=== PATIENT | female | born 1995 | race African-American/Black ===

== ENCOUNTER 2017-04-30 17:29 | Emergency (ER) | payer OTHER ==
[~2017-04-30] VITALS: Ht 152.4 cm; Wt 61.4 kg
[2017-04-30 17:34] VITALS: TEMP 98
[2017-04-30] MEDS ORDERED: birth control pills PO (17:53)
[2017-04-30 18:11] LABS: BASO % 0.1 % (0.0-2.0); GRAN # 4.7 (1.4-6.5); LYMPH # 1.9 (1.2-3.4); MEAN CELL VOLUME 70 fl (80.0-100.0); MEAN CORPUSCULAR HGB CONC 32 g/dl (33.0-37.0); MEAN PLATELET VOLUME 10.9 fl (7.4-10.4); MONO # 0.5 (0.1-0.6); MONO % 7.5 % (1.7-9.3); PLATELET COUNT 207 K/mm3 (130-400); RED BLOOD COUNT 5.23 M/mm3 (4.10-5.30); REDCELL DISTRIBUTION WIDTH-CV 13.5 % (11.5-14.5); WHITE BLOOD COUNT 7.2 K/mm3 (4.8-10.8)
[2017-04-30 18:17] LABS: HEMATOCRIT 36.4 % (37.0-47.0); HEMOGLOBIN 11.5 g/dl (12.5-16.0); MEAN CORPUSCULAR HEMOGLOBIN 22 pg (27.0-31.0)
[2017-04-30 18:28] LABS: ADJUSTED CALCIUM 9.5 mg/dL (8.4-10.2); ALBUMIN 4.3 gm/dL (3.5-5.0); BILIRUBIN,TOTAL 0.6 mg/dL (0.0-1.0); C-REACTIVE PROTEIN 1.7 mg/dL (0.0-0.9); CALCIUM 9.7 mg/dL (8.4-10.2); CREATININE, serum 0.68 mg/dL (0.52-1.25); POTASSIUM 3.7 mmol/L (3.4-5.0); TOTAL PROTEIN 8.2 gm/dL (6.4-8.2)
[2017-04-30] MEDS ORDERED: ATIVAN 0.50.5 MG/TAB PO (19:13)
[2017-04-30 19:30] VITALS: BP 108/75; PULSE 110
== END 2017-04-30 19:32 | disposition home or self-care (01) ==
LOC: COL.ER 17:29
PROVIDERS: Emergency Medicine
DX: H51.8 Other specified disorders of binocular movement (principal)